=== PATIENT | female | born 1950 | race African-American/Black ===

== ENCOUNTER 2022-12-19 10:03 | Outpatient (REF) | payer BC, SELFPAY ==
[2022-12-19 10:23] LABS: MANUAL DIFF FLAG NO
[2022-12-19 11:22] LABS: Basophils Percent Auto 0.7 % (0-2); Eosinophils Absolute Auto 0.2 X10*3/uL (0.0-0.4); Eosinophils Percent Auto 3.2 % (0-4); Hemoglobin 11.5 g/dl (12.0-16.0); Imm Gran Abs Auto 0.02 X10*3/uL (0.00-0.03); Imm Gran Pct Auto 0.3 % (0.0-0.4); Lymphocytes Absolute Auto 2.1 X10*3/uL (1.2-4.9); Lymphocytes Percent Auto 35.9 % (20-40); Mean Corpuscular HGB Conc 31.1 g/dl (31.0-35.0); Mean Corpuscular Hemoglobin 28.5 pg (27.0-33.0); Mean Corpuscular Volume 91.8 fL (80.0-98.0); Mean Platelet Volume 10.9 fL (9.4-12.3); Monocytes Absolute Auto 0.4 X10*3/uL (0.1-1.2); Neutrophils Absolute Auto 3.1 x10*3/uL (2.0-8.3); Neutrophils Percent Auto 52.9 % (45-73); Platelet Count 290 X10*3/uL (160-400); Red Blood Count 4.03 X10*6/uL (4.20-5.50); Red Cell Distribution Width 13.2 % (11.0-16.0); White Blood Count 5.9 X10*3/uL (4.8-10.8)
[2022-12-19 11:37] LABS: Estimated Average Glucose 123 mg/dL; Hemoglobin A1c % 5.9 %
[2022-12-19 11:56] LABS: Microalbum/Creatinine Ratio Ur 5.4 ug/mg cr
[2022-12-19 11:57] LABS: Alanine Aminotransferase 21 U/L (0-31); Albumin Level 4.3 g/dL (3.5-5.0); Alkaline Phosphatase 85 U/L (39-117); Anion Gap 14 (12-20); Aspartate Amino Transferase 14 U/L (5-31); Bilirubin Total 0.4 mg/dL (0.0-1.0); Blood Urea Nitrogen 15 mg/dL (9-16); Calcium 9.9 mg/dL (8.4-10.2); Carbon Dioxide 26 mmol/L (22-29); Chloride 108 mmol/L (96-108); Cholesterol 166 mg/dL; Estimated Glomerular Filt Rate > 60; Glucose Fasting 101 mg/dL (60-99); HDL Cholesterol 43 mg/dL; LDL Cholesterol Calculated 109 mg/dl; Potassium 4.6 mmol/L (3.3-5.1); Sodium 143 mmol/L (135-145); Total Protein 7.2 g/dL (6.5-8.0); Triglycerides 70 mg/dL
[2022-12-19 12:15] LABS: Vitamin D 25-OH Total 37.3 ng/mL (>30)
== END 2022-12-19 10:04 | disposition home or self-care (01) ==
LOC: HO.LAB 10:03
PROVIDERS: PCP Internal Medicine; Visit Provider Internal Medicine
DX: Z00.00 Encounter for general adult medical examination without abnormal findings (principal); R73.03 Prediabetes
CPT/HCPCS: 36415; 80053; 80061; 82043; 82306; 83036; 85025

== ENCOUNTER 2023-01-16 09:46 | Outpatient (REF) | payer BC, SELFPAY ==
--- NOTE | ~2023-01-16 | MM_ITS ---
EXAMINATION: MM SCREENING DIGITAL BREAST TOMOSYNTHESIS, BILATERAL CLINICAL INFORMATION: Screening. Asymptomatic. The lifetime risk of breast cancer based on the Tyrer-Cuzick Model is 7%. COMPARISON: Outside mammography: 01/18/2021, 12/16/2019, 06/30/2016 ([facility], [place], [place]). TECHNIQUE: Digital breast tomosynthesis is performed in both the craniocaudal and mediolateral oblique views along with computer-aided detection (CAD). Synthesized 2D images are generated from the tomosynthesis. FINDINGS: The breasts are heterogeneously dense, which may obscure small masses (ACR BI-RADS breast composition Category c). Parenchymal pattern is similar to prior outside studies. Again, there are postsurgical changes on the right with mild reduced breast size and stable scarring upper quadrant. Again, there are scattered bilateral benign smooth nodularity, more numerous on left. There is no significant mass or developing density or abnormal calcifications. The axilla are unremarkable. MM/MM tomosynthesis screening BI IMPRESSION: No significant changes from prior outside studies. ASSESSMENT: BI-RADS 2: Benign RECOMMENDATION: Routine annual mammography screening. This patient's information was entered into a reminder system with a target due date for their next mammogram.
== END 2023-01-16 09:47 | disposition home or self-care (01) ==
LOC: HO.MAMMO 09:46
PROVIDERS: PCP Internal Medicine; Visit Provider Internal Medicine
DX: Z12.31 Encounter for screening mammogram for malignant neoplasm of breast (principal)
CPT/HCPCS: 77063; 77067

== ENCOUNTER 2024-01-11 15:22 | Outpatient (REF) | payer BC, SELFPAY ==
[2024-01-11 15:48] LABS: MANUAL DIFF FLAG NO
[2024-01-11 16:10] LABS: Basophils Absolute Auto 0.1 X10*3/uL (0.0-0.2); Basophils Percent Auto 0.8 % (0-2); Eosinophils Absolute Auto 0.2 X10*3/uL (0.0-0.4); Eosinophils Percent Auto 3.2 % (0-4); Hematocrit 38.3 % (37.0-47.0); Hemoglobin 12.2 g/dl (12.0-16.0); Imm Gran Abs Auto 0.01 X10*3/uL (0.00-0.03); Imm Gran Pct Auto 0.2 % (0.0-0.4); Lymphocytes Absolute Auto 2.2 X10*3/uL (1.2-4.9); Mean Corpuscular HGB Conc 31.9 g/dl (31.0-35.0); Mean Corpuscular Hemoglobin 28.5 pg (27.0-33.0); Mean Corpuscular Volume 89.5 fL (80.0-98.0); Mean Platelet Volume 10.5 fL (9.4-12.3); Monocytes Absolute Auto 0.5 X10*3/uL (0.1-1.2); Monocytes Percent Auto 7.8 % (2-11); Neutrophils Absolute Auto 3.4 x10*3/uL (2.0-8.3); Platelet Count 266 X10*3/uL (160-400); Red Blood Count 4.28 X10*6/uL (4.20-5.50); Red Cell Distribution Width 13.2 % (11.0-16.0); White Blood Count 6.3 X10*3/uL (4.8-10.8)
[2024-01-11 16:11] LABS: Estimated Average Glucose 123 mg/dL; Hemoglobin A1c % 5.9 % (<6.0)
[2024-01-11 16:47] LABS: Alanine Aminotransferase 19 U/L (0-31); Albumin Level 4.4 g/dL (3.5-5.0); Alkaline Phosphatase 92 U/L (39-117); Anion Gap 9 (12-20); Aspartate Amino Transferase 16 U/L (5-31); Bilirubin Total 0.3 mg/dL (0.0-1.0); Blood Urea Nitrogen 15 mg/dL (9-16); Calcium 9.6 mg/dL (8.4-10.2); Carbon Dioxide 28 mmol/L (22-29); Chloride 107 mmol/L (96-108); Cholesterol 168 mg/dL (<200); Estimated Glomerular Filt Rate > 60; Glucose Random 105 mg/dL (60-115); Sodium 140 mmol/L (135-145); Total Protein 7.9 g/dL (6.5-8.0)
[2024-01-11 16:54] LABS: Appearance Urine Clear; Color Urine Yellow; Glucose Urine UA Negative (Negative); Leukocyte Esterase Urine Moderate (2+) (Negative); Nitrite Urine Negative (Negative); UMIC TRIGGER UA YES; Urine Blood Negative (Negative); Urine Ketones Negative (Negative); Urine Protein Negative (Neg-Trace)
[2024-01-11 16:59] LABS: Bacteria Urine None Seen (None Seen); Hyaline Casts Urine 0-2 /LPF (0-2); RBC Urine 0-2 /HPF (0-2); WBC Urine 21-50 /HPF (0-5)
[2024-01-11 18:12] LABS: Creatinine Urine 96.29 mg/dL; Microalbum/Creatinine Ratio Ur 12.4 ug/mg cr (<30)
== END 2024-01-11 15:23 | disposition home or self-care (01) ==
LOC: HO.LAB 15:22
PROVIDERS: PCP Internal Medicine; Visit Provider Internal Medicine
DX: R73.03 Prediabetes (principal); Z87.442 Personal history of urinary calculi
CPT/HCPCS: 36415; 80053; 81001; 82043; 82465; 82570; 83036; 85025

== ENCOUNTER 2024-01-25 15:48 | Outpatient (REF) | payer BC, SELFPAY ==
--- NOTE | ~2024-01-25 | MM_ITS ---
EXAMINATION: MM SCREENING DIGITAL BREAST TOMOSYNTHESIS, BILATERAL CLINICAL INFORMATION: Screening. Asymptomatic. COMPARISON: Mammography: This study is compared with prior exams dating back to 2019. TECHNIQUE: Digital breast tomosynthesis is performed in both the craniocaudal and mediolateral oblique views along with computer-aided detection (CAD). Synthesized 2D images are generated from the tomosynthesis. FINDINGS: There are scattered areas of fibroglandular density (ACR BI-RADS breast composition Category b). There are no significant masses, abnormal calcifications, or other abnormalities. There are architectural changes in the upper outer quadrant of the right breast from prior excision showing benign disease. There is chronic, benign right nipple inversion. MM/MM tomosynthesis screening BI IMPRESSION: No mammographic evidence of malignancy. ASSESSMENT: BI-RADS BI-RADS 2 - Benign Findings RECOMMENDATION: Routine annual mammography screening. 1 year F/U This examination should not preclude the clinical evaluation of a suspicious palpable abnormality. This patient's information was entered into a reminder system with a target due date for their next mammogram.
== END 2024-01-25 15:49 | disposition home or self-care (01) ==
LOC: HO.MAMMO 15:48
PROVIDERS: PCP Internal Medicine; Visit Provider Internal Medicine
DX: Z12.31 Encounter for screening mammogram for malignant neoplasm of breast (principal)
CPT/HCPCS: 77063; 77067

== ENCOUNTER → 2024-01-25 16:00 | Outpatient (BNV) | payer BC, SELFPAY | PROVIDERS: PCP Internal Medicine; Visit Provider Radiology Diagnostic Radiology | DX: Z12.31 Encounter for screening mammogram for malignant neoplasm of breast (principal) | CPT/HCPCS: 77063; 77067 ==

== ENCOUNTER 2024-02-03 15:02 | Outpatient (REF) | payer BC, SELFPAY ==
--- NOTE | ~2024-02-03 | MM_ITS ---
EXAMINATION: BONE DENSITOMETRY CLINICAL INDICATION: Menopausal state. COMPARISON: This is the patient's baseline examination. TECHNIQUE: Using a Gamelet DXA System (software version: 13.1) manufactured by [id number], dual-energy x-ray absorptiometry was performed of the lumbar spine and left hip. The images are of good technical quality. Summary results are attached. FINDINGS: AP SPINE L1-L3 (excluding L4): The data of L1-L4 has been changed to exclude the L4 vertebral body, because degenerative sclerosis at this level may cause overestimation of lumbar spine density. BMD 1.028 g/cm2, Z-score 0.1, T-score -1.2, osteopenia. LEFT FEMUR, NECK: BMD 0.779 g/cm2, Z-score -0.8, T-score -1.9, osteopenia. LEFT FEMUR, TOTAL: BMD 0.727 g/cm2, Z-score -1.4, T-score -2.2, osteopenia. IDENTIFIED RISK FACTORS: Early menopause, secondary osteoporosis. HISTORY OF FRACTURE: None listed. MEDICATIONS: Vitamin D. MM/XR DEXA axial skeleton IMPRESSION: 1. DIAGNOSIS: Osteopenia based on the lowest T-score value of -2.2 in the total femur applying World Health Organization criteria. 2. 10-YEAR FRACTURE RISK PREDICTION, FRAX: Major osteoporotic fracture (clinical spine, forearm, hip or shoulder) 5.5%. Hip fracture 1.2%. 3. Treatment Recommendations: NOF guidelines recommend consideration for treatment in postmenopausal women and men age 50 and older presenting with the following: -A hip or vertebral (clinical or morphometric) fracture. -T-score less than or equal to -2.5 at the femoral neck or spine after appropriate evaluation to exclude secondary causes. -Low bone mass at the hip or spine and a 10-year fracture probability by FRAX of greater than or equal to 3% for hip fracture or greater than or equal to 20% for major osteoporotic fracture based on the [place] adapted WHO algorithm. 4. Other Recommendations: All treatment decisions require clinical judgment and consideration of individual patient factors, including patient preferences, comorbidities, previous drug use, risk factors not captured in the FRAX model (e.g. frailty, falls, vitamin D deficiency, increased bone turnover, interval significant decline in bone density) and possible under or overestimation of fracture risk by FRAX. Additional medical evaluation for secondary cause of low bone mineral density may be appropriate. FUTURE SCAN RECOMMENDATION: People with diagnosed cases of osteoporosis or at high risk for fracture should have regular bone mineral density tests. For patients eligible for Medicare, routine testing is allowed once every 2 years. The testing frequency can be increased to one year for patients who have rapidly progressing disease, those who are receiving or discontinuing medical therapy to restore bone mass, or have additional risk factors.
== END 2024-02-03 15:03 | disposition home or self-care (01) ==
LOC: HO.MAMMO 15:02
PROVIDERS: PCP Internal Medicine; Visit Provider Internal Medicine
DX: Z13.820 Encounter for screening for osteoporosis (principal); Z78.0 Asymptomatic menopausal state
CPT/HCPCS: 77080

== ENCOUNTER 2025-03-28 15:28 | Outpatient (AMB) | payer BC, SELFPAY ==
--- NOTE | 2025-03-28 15:33 | A.OFFPC_ITS ---
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 She was diagnosed with type 2 diabetes in 1999 for which he reports was related to stress after her son was in a car accident in his now paraplegic. She continues caring for her son at home and reports they have all services and equipment that they need. She is no longer taking medication for the diabetes and hemoglobin A1c has been very well-controlled. She does also have osteopenia as noted on her most recent DEXA scan. She is taking vitamin-D. She is reporting that she has had an upper respiratory infection ongoing for 1 week with throat irritation, nasal congestion with clear nasal drainage and a dry cough. Denies any fevers or chills. No shortness a breath or chest pain. She has been using lemon tea, fausto, peppermint with improvement in symptoms. 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 ROS: General: No fevers, malaise, unintentional weight loss HEENT: No blurred vision, diplopia. see hpi Cardiovascular: No chest pain, palpitations, or leg edema Respiratory: see hpi Neuro: No headaches, weakness, paresthesias Skin: No rashes or lesions Exam: .Constitutional - Awake and Alert, No ap parent distress Eyes - PERRL Cardiovascular - S1S2, RRR, No edema Respiratory - Normal lung expansion, Normal respiratory effort, No respiratory distress, CTA bilaterally Extremities - no calf tenderness bilaterally, no swelling Skin - Warm/Dry Neurological - Alert & oriented x3 Psychological - Appropriate affect [facility] Medical History (Updated 03/30/25 @ 18:02 by VANE Tobar) Type 2 diabetes mellitus Osteopenia Physical exam (Primary Care) Vital Signs: Last Vital Signs Temp 97.7 F 03/28/25 15:35 Pulse 79 03/28/25 15:35 Resp 16 03/28/25 15:35 BP 122/68 03/28/25 15:35 Pulse Ox 97 03/28/25 15:35 Oxygen Delivery Method Room Air 03/28/25 15:35 BMI result Body Mass Index 24.2 Coding Level of Care Code New Pt Level 4 (84875) Complex EM visit Add On G2211 Diagnoses Type 2 diabetes mellitus E11.9 Osteopenia M85.80 URI (upper respiratory infection) J06.9 Assessment & Plan Assessment & Plan (1) Type 2 diabetes mellitus: Code(s): E11.9 - Type 2 diabetes mellitus without complications Category: Medical Plan: Previously well-controlled. We will order updated hemoglobin A1c. Continue to follow diabetic diet with regular exercise. Continue with annual eye and foot exams. (2) Osteopenia: Code(s): M85.80 - Other specified disorders of bone density and structure, unspecified site Category: Medical Plan: DXA scan up to date, next due 01/2026. Continue calcium and vitamin-D supplementation. Continue with weight-bearing exercise (3) URI (upper respiratory infection): Code(s): J06.9 - Acute upper respiratory infection, unspecified Category: Medical Plan: Symptomatic management advised. Likely viral in nature, antibiotics not indicated. Contact the office should symptoms not improve or if they worsen Plan Follow-up for physical exam. Labs to be completed following visit. Due for screening mammogram which is ordered. Orders: Orders MM tomosynthesis screening BI 03/28/25 Z12.31 - Encounter for screening mammogram for malignant neoplasm of breast Complete Blood Count Auto Diff 03/28/25 E11.9 - Type 2 diabetes mellitus without complications, M85.80 - Other specified disorders of bone density and structure, unspecified site Liver Panel 03/28/25 E11.9 - Type 2 diabetes mellitus without complications, M85.80 - Other specified disorders of bone density and structure, unspecified site Basic Metabolic Panel 03/28/25 E11.9 - Type 2 diabetes mellitus without complications, M85.80 - Other specified disorders of bone density and structure, unspecified site Hemoglobin A1c 03/28/25 E11.9 - Type 2 diabetes mellitus without complications, M85.80 - Other specified disorders of bone density and structure, unspecified site Lipid Panel 03/28/25 E11.9 - Type 2 diabetes mellitus without complications, M85.80 - Other specified disorders of bone density and structure, unspecified site TSH reflex Free T4 03/28/25 E11.9 - Type 2 diabetes mellitus without complications, M85.80 - Other specified disorders of bone density and structure, unspecified site Vitamin D 25-OH Total 03/28/25 E11.9 - Type 2 diabetes mellitus without complications, M85.80 - Other specified disorders of bone density and structure, unspecified site
[2025-03-28 15:35] VITALS: BP 122/68; PULSE 79; RESP 16; TEMP 36.5; O2SAT 97; BMI 24.2
== END 2025-03-28 16:01 | disposition home or self-care (01) ==
LOC: HO.HMCHD 15:28
PROVIDERS: PCP Internal Medicine; Visit Provider Physician Assistant
DX: E11.9 Type 2 diabetes mellitus without complications (principal); M85.80 Other specified disorders of bone density and structure, unspecified site; J06.9 Acute upper respiratory infection, unspecified

== ENCOUNTER → 2025-03-28 15:28 | Outpatient (BNVA) | payer BC, SELFPAY | PROVIDERS: PCP Internal Medicine; Visit Provider Physician Assistant ==

== ENCOUNTER 2025-03-31 07:58 | Outpatient (REF) | payer BC, SELFPAY ==
[2025-03-31 08:08] LABS: MANUAL DIFF FLAG NO
[2025-03-31 08:29] LABS: Basophils Absolute Auto 0.1 X10*3/uL (0.0-0.2); Basophils Percent Auto 1.1 % (0-2); Eosinophils Absolute Auto 0.2 X10*3/uL (0.0-0.4); Eosinophils Percent Auto 3.6 % (0-4); Hematocrit 38.5 % (37.0-47.0); Hemoglobin 12.3 g/dl (12.0-16.0); Imm Gran Abs Auto 0.01 X10*3/uL (0.00-0.03); Imm Gran Pct Auto 0.2 % (0.0-0.4); Lymphocytes Absolute Auto 2.4 X10*3/uL (1.2-4.9); Lymphocytes Percent Auto 37.6 % (20-40); Mean Corpuscular HGB Conc 31.9 g/dl (31.0-35.0); Mean Corpuscular Hemoglobin 28.9 pg (27.0-33.0); Mean Corpuscular Volume 90.6 fL (80.0-98.0); Mean Platelet Volume 10.4 fL (9.4-12.3); Monocytes Absolute Auto 0.4 X10*3/uL (0.1-1.2); Monocytes Percent Auto 6.5 % (2-11); Neutrophils Absolute Auto 3.3 x10*3/uL (2.0-8.3); Platelet Count 272 X10*3/uL (160-400); Red Blood Count 4.25 X10*6/uL (4.20-5.50); White Blood Count 6.5 X10*3/uL (4.8-10.8)
[2025-03-31 08:47] LABS: Estimated Average Glucose 126 mg/dL
[2025-03-31 09:15] LABS: Alanine Aminotransferase 24 U/L (0-31); Albumin Level 4.3 g/dL (3.5-5.0); Alkaline Phosphatase 84 U/L (39-117); Anion Gap 13 (12-20); Aspartate Amino Transferase 22 U/L (5-31); Bilirubin Direct < 0.2 mg/dL (0.0-0.5); Bilirubin Total 0.2 mg/dL (0.0-1.0); Blood Urea Nitrogen 22 mg/dL (9-16); Calcium 9.5 mg/dL (8.4-10.2); Carbon Dioxide 26 mmol/L (22-29); Chloride 111 mmol/L (96-108); Cholesterol 146 mg/dL (<200); Estimated Glomerular Filt Rate > 60; Glucose Random 100 mg/dL (60-115); HDL Cholesterol 43 mg/dL (>40); LDL Cholesterol Calculated 93 mg/dL (<100); Potassium 4.5 mmol/L (3.3-5.1); Sodium 145 mmol/L (135-145); Total Protein 7.6 g/dL (6.5-8.0); Triglycerides 51 mg/dL (<150)
[2025-03-31 09:35] LABS: TSH reflex Free T4 1.59 uIU/mL (0.32-4.0); Vitamin D 25-OH Total 31.6 ng/mL (>30)
== END 2025-03-31 07:59 | disposition home or self-care (01) ==
LOC: HO.LAB 07:58
PROVIDERS: PCP Internal Medicine; Visit Provider Physician Assistant
DX: M85.80 Other specified disorders of bone density and structure, unspecified site (principal); E11.9 Type 2 diabetes mellitus without complications
CPT/HCPCS: 36415; 80048; 80061; 80076; 82306; 83036; 84443; 85025

== ENCOUNTER 2025-05-21 15:43 | Outpatient (REF) | payer BC, SELFPAY | END 2025-05-21 15:44 | disposition home or self-care (01) | LOC: HO.MAMMO 15:43 | PROVIDERS: PCP Physician Assistant; Visit Provider Physician Assistant | DX: Z12.31 Encounter for screening mammogram for malignant neoplasm of breast (principal) | CPT/HCPCS: 77063; 77067 ==

== ENCOUNTER → 2025-05-21 16:00 | Outpatient (BNV) | payer BC, SELFPAY | PROVIDERS: PCP Physician Assistant; Visit Provider Internal Medicine | DX: Z12.31 Encounter for screening mammogram for malignant neoplasm of breast (principal) | CPT/HCPCS: 77063; 77067 ==